=== PATIENT | female | born 1955 | race Caucasian/White ===

== ENCOUNTER 2020-01-26 09:44 | Emergency (ER) | payer BC ==
[~2020-01-26] VITALS: Ht 165.1 cm; Wt 88.2 kg
[~2020-01-26 09:44] MED LIST: HYDR-4383 PO
[2020-01-26] MEDS ORDERED: acetaZOLAMIDE IV 500mg inj IV ONE (11:45)
[2020-01-26] MEDS ORDERED: timolol 0.5% ophthalmic solution 5ml bottle RIGHTEYE SCH (11:45)
[2020-01-26] MEDS: timolol 0.5% ophthalmic solution 5ml bottle RIGHTEYE SCH ×2 (12:10→13:42)
[2020-01-26] MEDS ORDERED: brimonidine 0.2% 5 ML ophthalmic drops RIGHTEYE SCH (12:20)
[2020-01-26] MEDS ORDERED: ketorolac trometh. 30mg/ml inj. IV ONE (12:25)
[2020-01-26] MEDS ORDERED: acetaZOLAMIDE 250mg tablet PO ONE (12:30)
[2020-01-26] MEDS ORDERED: ketorolac tromethamine 15mg/ml inj. IV ONE (12:35)
[2020-01-26] MEDS ORDERED: pilocarpine 2% ophthalmic drops 15ml RIGHTEYE ONE (13:00)
[2020-01-26 13:03] LABS: BASOPHILS # (AUTO) 0.1 X10'3 (0-0.2); BASOPHILS % (AUTO) 0.6 % (0-1); EOSINOPHILS % (AUTO) 0.1 % (0-6); HEMATOCRIT 52.3 % (35.0-45.0); LYMPHOCYTES # (AUTO) 1.3 X10'3 (1.1-4.8); LYMPHOCYTES % (AUTO) 9.6 % (21-51); MEAN CORPUSCULAR HEMOGLOBIN 32.2 PG (27.0-31.0); MEAN CORPUSCULAR HGB CONC 34.8 g/dL (33.0-36.5); MEAN CORPUSCULAR VOLUME 92.4 FL (78-98); MEAN PLATELET VOLUME 7.9 FL (7.4-10.4); MONOCYTES # (AUTO) 0.6 X10'3 (0-0.9); MONOCYTES % (AUTO) 4.3 % (2-12); NEUTROPHILS # (AUTO) 11.8 X10'3 (1.8-7.7); NEUTROPHILS % (AUTO) 85.4 % (42-75); PLATELET COUNT 223 X10'3 (140-440); RED BLOOD COUNT 5.66 X10'6 (4.20-5.60); RED CELL DISTRIBUTION WIDTH 12.5 % (11.5-14.5); WHITE BLOOD COUNT 13.8 X10'3 (4.5-11.0)
[2020-01-26 13:05] LABS: HEMOGLOBIN 18.2 g/dl (12.0-16.0)
[2020-01-26 13:20] LABS: ALANINE AMINOTRANSFERASE 51 U/L (12-78); ALBUMIN 3.7 G/DL (3.4-5.0); ALBUMIN/GLOBULIN RATIO 0.9 (1.1-1.5); ALKALINE PHOSPHATASE 68 IU/L (46-116); ANION GAP 6 (8-16); ASPARTATE AMINO TRANSFERASE 36 U/L (10-37); BILIRUBIN,TOTAL 0.5 MG/DL (0.1-1.0); BLOOD UREA NITROGEN 9 MG/DL (7-18); CALCIUM 9.1 MG/DL (8.5-10.1); CHLORIDE 105 MMOL/L (99-107); CREATININE 0.75 MG/DL (0.40-0.90); GLUCOSE 141 MG/DL (70-104); POTASSIUM 3.9 MMOL/L (3.5-5.1); SODIUM 137 MMOL/L (135-145); TOTAL CARBON DIOXIDE 25.7 MMOL/L (24-32); eGFR 78 ML/MIN
[2020-01-26 13:57] VITALS: BP 206/93
[2020-01-26] MEDS ORDERED: labetalol 100mg tablet PO STA (14:02)
[2020-01-26] MEDS ORDERED: ofloxacin 0.33% 5ml ophthalmic drops RIGHTEYE STA (15:03)
[2020-01-26] MEDS ORDERED: ciprofloxacin 0.3% 2.5ml ophthalmic solution RIGHTEYE STA (15:24)
== END 2020-01-26 16:19 | disposition home or self-care (01) ==
LOC: ER 09:44
DX: H40.211 Acute angle-closure glaucoma, right eye (principal); F17.200 Nicotine dependence, unspecified, uncomplicated
CPT/HCPCS: 36415; 80053; 85025; 96374; 96375; 96376; 99284; J1120; J1885

== ENCOUNTER 2023-06-03 08:41 | Emergency (ER) | payer BC ==
[~2023-06-03] VITALS: Ht 165.1 cm; Wt 90.8 kg
[2023-06-03 09:31] VITALS: BP 199/79
== END 2023-06-03 10:14 | disposition home or self-care (01) ==
LOC: ER 08:41
DX: S50.12XA Contusion of left forearm, initial encounter (principal); Z72.89 Other problems related to lifestyle; Z79.899 Other long term (current) drug therapy; V80.010A Animal-rider injured by fall from or being thrown from horse in noncollision accident, initial encounter; Y93.89 Activity, other specified; Y92.89 Other specified places as the place of occurrence of the external cause; Y99.8 Other external cause status
CPT/HCPCS: 73090; 99283